=== PATIENT | female | born 1990 ===

== ENCOUNTER 2017-12-11 08:50 | Emergency (ER) | payer OTHER ==
[2017-12-11 09:12] VITALS: O2SAT 99
--- NOTE | 2017-12-11 09:33 | ED PDOC ---
HPI: CCC, URI, Sore Throat Time Seen by Provider: 12/11/17 09:20 Chief Complaint (Nursing): Flu-like Symptoms Chief Complaint (Provider): Cough History Per: Patient History/Exam Limitations: no limitations Onset/Duration Of Symptoms: Days (4 days) Additional Complaint(s): Pt. with cough, congestion, runny nose, body aches. No nausea, vomit, diarrhea. States dyspnea when coughing a lot. No numbness, tingles, weakness, chest pain. No dizziness. No abd pain. No neck pain. Fever at home but not measured. Past Medical History Reviewed: Nursing Documentation, Vital Signs Vital Signs: Last Vital Signs Temp 99.3 F 12/11/17 09:10 Pulse 100 H 12/11/17 09:10 Resp 18 12/11/17 09:10 BP 118/69 12/11/17 09:10 Pulse Ox 99 12/11/17 09:41 - Medical History PMH: No Chronic Diseases - Surgical History Surgical History: No Surg Hx - Family History Family History: States: Unknown Family Hx - Living Arrangements Living Arrangements: With Family - Social History Alcohol: None Drugs: Denies - Home Medications Home Medications: Ambulatory Orders Medication Instructions Recorded Benzonatate [Tessalon Perles] 100 mg PO BID PRN 5 Days sgl 12/11/17 Ibuprofen [Motrin] 600 mg PO TID 7 Days tab 12/11/17 Oseltamivir Phosphate [Tamiflu] 75 mg PO BID 5 Days capsule 12/11/17 - Allergies Allergies/Adverse Reactions: Allergies Allergy/AdvReac Type Severity Reaction Status Date / Time No Known Allergies Allergy Verified 12/11/17 09:12 Review of Systems ROS Statement: Except As Marked, All Systems Reviewed And Found Negative ENT: Positive for: Nose Pain, Nose Discharge, Nose Congestion Respiratory: Positive for: Cough, Shortness of Breath Musculoskeletal: Positive for: Other (body aches) Physical Exam - Reviewed Nursing Documentation Reviewed: Yes Vital Signs Reviewed: Yes - Physical Exam Appears: Positive for: Non-toxic, No Acute Distress Head Exam: Positive for: ATRAUMATIC, NORMAL INSPECTION, NORMOCEPHALIC Skin: Positive for: Normal Color, Warm, DRY Eye Exam: Positive for: EOMI, Normal appearance, PERRL ENT: Positive for: Nasal Congestion Neck: Positive for: Normal, Painless ROM, Supple Cardiovascular/Chest: Positive for: Regular Rate, Rhythm Respiratory: Positive for: CNT, Normal Breath Sounds Gastrointestinal/Abdominal: Positive for: Normal Exam, Bowel Sounds, Soft. Negative for: Tenderness Back: Positive for: Normal Inspection. Negative for: L CVA Tenderness, R CVA Tenderness Extremity: Positive for: Normal ROM. Negative for: Tenderness, Pedal Edema Neurologic/Psych: Positive for: Alert, Oriented - ECG O2 Sat by Pulse Oximetry: 99 - Progress ED Course And Treament: 1208: Stable. AAOx3. Pain free. Tolerated po. Disposition - Clinical Impression Clinical Impression: Influenza-like symptoms - Patient ED Disposition Is Patient to be Admitted: No Counseled Patient/Family Regarding: Diagnosis, Need For Followup, Rx Given - Disposition Referrals: [facility] [Outside] - 12/12/17 Disposition: Routine/Home Disposition Time: 12:09 Condition: STABLE Additional Instructions: Return if not better in 3 days. Prescriptions: Benzonatate [Tessalon Perles] 100 mg PO BID PRN 5 Days sgl PRN Reason: Cough Ibuprofen [Motrin] 600 mg PO TID 7 Days tab Oseltamivir Phosphate [Tamiflu] 75 mg PO BID 5 Days capsule Instructions: Flu, Adult (DC) Print Language: DANISH
[2017-12-11 13:02] VITALS: BP 121/74; PULSE 89; RESP 15; TEMP 99.2
== END 2017-12-11 13:06 | disposition home or self-care (01) ==
LOC: H.ER 08:50
DX: J11.1 Influenza due to unidentified influenza virus with other respiratory manifestations (principal)